=== PATIENT | male | born 1980 | race Caucasian/White ===

== ENCOUNTER 2018-11-23 15:08 | Inpatient (IN) | payer OTHER ==
--- NOTE | 2018-11-23 15:43 | EDPHY ---
H & P Time Seen by Provider: 11/23/18 15:23 HPI/ROS: CHIEF COMPLAINT: Requesting mental health evaluation HISTORY OF PRESENT ILLNESS: The patient is a 30-year-old male with no psychiatric past medical history presents emergency department with thoughts of wanting to harm himself or others. Per the patient and his cousin he has had vivid dreams over the past year. He recently returned from [facility] with his fiancee. Developed a rash on his forearms. He went to urgent care was started on prednisone orally and topically. History and became more significant after starting the prednisone. Per family's report, the patient also has delusional thinking. He feels that his previous girlfriend did "black magic" on him. Patient denies any drug use. No ingestion. No previous thoughts of self-harm or injuring others. REVIEW OF SYSTEMS: 10 systems were reveiwed and are negative with the exception of the elements mentioned in the history of present illness. Past Medical/Surgical History: Includes bilateral hip replacement, shoulder surgery Social History: The patient denies drugs or alcohol Smoking Status: Former smoker Physical Exam: Vitals noted GENERAL: Well-appearing, in no acute distress, alert. HEENT: Eyes normal to inspection, normal pharynx, no signs of dehydration. NECK: Normal, supple. RESPIRATORY: Clear to auscultation bilaterally, no rales, rhonchi or wheezing. CVS: Regular rate and rhythm, no rubs, murmurs, or gallops. ABDOMEN: Soft, nontender, nondistended, no organomegaly. BACK: Normal to inspection, no CVA tenderness. SKIN: Patient has macular and dry type lesions on his flexor surfaces of his arms bilaterally. There are no ulcers or target lesions. No pustules. No discharge. Normal color, warm, dry. No pallor. EXTREMITIES: No pedal edema, no calf tenderness, no Homans sign or cords, no joint swelling. NEURO/PSYCH: Alert and oriented, normal mood and affect, normal motor sensory exam. No obvious cranial nerve deficit. Constitutional: Initial Vital Signs Temperature (C) 36.7 C 11/23/18 15:17 Heart Rate 65 11/23/18 15:17 Respiratory Rate 18 11/23/18 15:17 Blood Pressure 129/79 H 11/23/18 15:17 O2 Sat (%) 97 11/23/18 15:17 O2 Delivery Mode Room Air Allergies/Adverse Reactions: No Known Allergies Allergy (Unverified 11/23/18 15:15) Home Medications: Medication Instructions Recorded NK [No Known Home Meds] 11/23/18 Medical Decision Making ED Course/Re-evaluation: In the emergency department I discussed possible etiologies with the patient. I answered all his questions. IV was placed. Laboratory studies were obtained. I do not feel the patient needs emergent treatment for his rash. He was instructed to continue on his medications prescribed at urgent care. CBC and chemistry are unremarkable. Tox screen negative. Psychiatric Services were consulted. The patient was placed on a mental health hold. The patient will be further evaluated. Differential Diagnosis: My differential includes but is not limited to psychosis, bipolar disorder, schizophrenia, depression, suicidal ideation, medication reaction, allergic reaction, mites - Data Points Laboratory Results: Laboratory Results 11/23/18 16:00 11/23/18 16:00 11/23/18 11/23/18 11/23/18 16:00 16:00 16:00 WBC 9.35 10^3/uL 10^3/uL (3.80-9.50) RBC 5.75 10^6/uL 10^6/uL (4.40-6.38) Hgb 17.7 g/dL H g/dL (13.7-17.5) Hct 52.2 % H % (40.0-51.0) MCV 90.8 fL fL (81.5-99.8) MCH 30.8 pg pg (27.9-34.1) MCHC 33.9 g/dL g/dL (32.4-36.7) RDW 12.6 % % (11.5-15.2) Plt Count 366 10^3/uL 10^3/uL (150-400) MPV 8.7 fL fL (8.7-11.7) Neut % (Auto) 66.7 % % (39.3-74.2) Lymph % (Auto) 23.3 % % (15.0-45.0) Park % (Auto) 8.1 % % (4.5-13.0) Eos % (Auto) 1.0 % % (0.6-7.6) Baso % (Auto) 0.5 % % (0.3-1.7) Nucleat RBC Rel Count 0.0 % % (0.0-0.2) Absolute Neuts (auto) 6.23 10^3/uL 10^3/uL (1.70-6.50) Absolute Lymphs (auto) 2.18 10^3/uL 10^3/uL (1.00-3.00) Absolute Monos (auto) 0.76 10^3/uL 10^3/uL (0.30-0.80) Absolute Eos (auto) 0.09 10^3/uL 10^3/uL (0.03-0.40) Absolute Basos (auto) 0.05 10^3/uL 10^3/uL (0.02-0.10) Absolute Nucleated RBC 0.00 10^3/uL 10^3/uL (0-0.01) Immature Gran % 0.4 % % (0.0-1.1) Immature Gran # 0.04 10^3/uL 10^3/uL (0.00-0.10) Sodium 137 mEq/L mEq/L (135-145) Potassium 4.1 mEq/L mEq/L (3.5-5.2) Chloride 95 mEq/L L mEq/L (97-110) Carbon Dioxide 26 mEq/l mEq/l (22-31) Anion Gap 16 mEq/L H mEq/L (6-14) BUN 9 mg/dL mg/dL (7-23) Creatinine 0.7 mg/dL mg/dL (0.7-1.3) Estimated GFR > 60 Glucose 107 mg/dL H mg/dL (70-100) Calcium 10.5 mg/dL H mg/dL (8.5-10.4) Salicylates < 1.0 mg/dL L mg/dL (2.0-20.0) Urine Opiates Screen NEGATIVE (NEGATIVE) Acetaminophen < 10 mcg/mL L mcg/mL (10-30) Urine Barbiturates NEGATIVE (NEGATIVE) Ur Phencyclidine Scrn NEGATIVE (NEGATIVE) Ur Amphetamine Screen NEGATIVE (NEGATIVE) U Benzodiazepines Scrn NEGATIVE (NEGATIVE) Urine Cocaine Screen NEGATIVE (NEGATIVE) U Marijuana (THC) Screen NEGATIVE (NEGATIVE) Ethyl Alcohol < 10 mg/dL mg/dL (0-10) Departure - Departure Disposition: Home, Routine, Self-Care Clinical Impression: Skin rash Condition: Good Referrals: NONE *PRIMARY CARE P,. [Primary Care Provider] - As per Instructions
[2018-11-23 16:22] LABS: PLATELET COUNT 366 10^3/uL (150-400)
--- NOTE | 2018-11-23 19:37 | ASMTTLCEVL ---
TLC Evaluation - Basic Information Evaluation Start Date and 11/23/2018 04:45 PM Time Hospital Status Answers: M1 Hold 72-hr M1 Hold Start Date 11/23/2018 05:54 PM and Time Patient statement Notes: " Started a year ago. Last few days it compounded. I felt like magic is being done to me. Last few days, I worried that I may hurt myself or others." Narrative Notes: Pt is a 38 year old male who presented to [facility] voluntarily at the recommendation of his Reiki specialist Gonzalez Nance. Pt is here with his cousin Chuck Lama. Pt reports one year ago he was in [place] visiting a woman he was dating. While he was there, he ended the relationship with this woman and left for [facility]. Pt stated once he left [place], he "felt off and depressed and that there was a possession in my head and that someone had done black magic on him and that he's been cursed." Pt stated while he was in [place] he did mushrooms one time while he was in [place]. Pt reports since [place] he has experienced visual hallucinations off and on and has paranoid delusions. Pt reports he has these vivid dreams where he feels like someone is taking over his "consciousness" and told his girlfriend," I feel like there is energy in my brain so if I'm acting differently then the've taken me, someone else is in my body and you should run." Pt stated, " Last couple nights I wake up in a panic. I'm afraid something will take over my body and I will attack my fiancee." Pt states he doesn't want to hurt himself or anyone else but is afraid that he will because of his delusions. Pt's zia Lama stated pt reported he felt that their neighbors were attacking them with bad energy. Both zia and zia Lama are concerned and stated this behavior is out of character for pt and he has never been like this before. Daina stated pt has been to several energy healers in [place] and "they stated he does have some negative energy around him." Pt appears to have good insight, was calm and cooperative throughout the evaluation. Diagnosis History Notes: Pt has no prior dx hx. Pt stated he has some situational depression in college but no dx. Prior suicide attempts Notes: Pt denied any prior suicide attemtps. Prior hospitalizations Notes: Pt denied any prior hospitalizations. Treatment Responses Notes: N/A History of violence Notes: Pt denies wanting to harm anyone intentionally. Pt reports he has been having "vivid dreams" about someone "taking over his consciousness" and he is afraid he may hurt his girlfriend. Therapist: Pt see's energy healers and a reike specialist Gonzalez Nance Psychiatrist: None Medications (name, dosage, route, freq uency) Notes: Prednisone- for the past few days Allergies/Reaction Notes: Nka Sleep Notes: Pt reports he has been sleeping approx 2 hours of sleep a night for the past 3 days. Appetite Notes: Pt reports his appetite "is like nothing." Medical/Surgical history Notes: Pt had a bilateral hip replacements in 2005 and 2006. Substance use history (frequency, intensity, his tory, duration) Notes: Pt reports using a variety of drugs experimentally in his 's. Pt reported using LSD, Coke, Xanax, shrooms and THC. Pt reports he was using marijuana since his 's but stopped using in the beginning of November. Utox was negative and bal was.0 Family composition Notes: Pt reports he has a younger sister. pt's cousing Jose lives in [facility] and they are very close. Need for family Answers: No participation in patient's care Family psychiatric/substance abuse history Notes: Pt denied any family mental health history. Pt reported his father is an alcoholic. Developmental history Notes: Pt reported his childhood was "fine for the most part." Pt reported his parents when he was10 years old and then life was "more stressfull." Pt stated his mother had to work approx 60 hours a week. Pt denied any childhood abuse hx. Pt stated he has had 3 concussions with LOC 1 time in 6th grade. Abuse concerns Answers: None Marital status/children Notes: Pt became engaged this past Tuesday, no children. Living situation Notes: Pt lives in [place]. Peer support/family strengths Notes: Pt identifies as heterosexual. Education level/history Notes: Pt attended [employer]. 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 Notes: None Legal Notes: Pt reports having a couple of DUI's in his 20's. His last DUI was in 2002. Jewish/Spiritual Notes: Pt stated he would prefer not to take any psychiatric medications. Leisure Notes: Pt enjoys traveling and has been to [place], [facility], [place] and [place]. Pt als enjoys riding bikes and hiking. Collateral Notes: Cousin-Jose Ibarra Patient's strengths Answers: Honest (Please select at least TWO strengths): Insightful Intelligent Motivated for Treatment Supportive Family Willingness [facility] Evaluation - Mental Status Exam Appearance: Answers: Appropriate Eye Contact: Answers: Good/Direct Mood: Answers: Sad Affect: Answers: Anxious Distracted Suspicious Behavior: Answers: Cooperative Speech: Answers: Relevant Logical Clear Coherent Thought Process: Answers: Organized Oriented Alert Intact Insight: Answers: Good Judgement: Answers: Good Depression Answers: Sad Mood Signs/Symptoms: Withdrawn Anxiety Signs/Symptoms Answers: Generalized Anxiety Panic Attacks Hallucinations: Answers: Auditory Visual Delusions: Answers: Being Controlled Pt reported to have Answers: No suicidal/self-injuring ideation/behavior? Pt reported to be making Answers: No suicidal/self-injuring threats? Pt reported to have Answers: No aggression/assault ideation/behavior? Pt reported to be making Answers: No aggression/assault threats? Pt exhibits inability to Answers: No care for self/grave disability? Ideation/behavior is Answers: Yes chronic? Patient has a specific Answers: No plan? Ideation involves Answers: No serious/lethal intent? Ideation has Answers: No delusional/hallucinatory content? History of Answers: No suicidal/self-injuring ideation, behavior, or threats? History of Answers: No aggressive/assaultive ideation, behavior, or threats? History of serious Answers: No physical harm to self/others while in treatment setting? [facility] Evaluation - Suicide/Homicide Risk Suicide Risk Factors: Answers: < 20 or > 40 Years of Age Psychotic Disorder Homicide/violence risk Answers: Paranoid Ideation factors: Current Suicidal Answers: No Ideation? Current Suicidal Ideation Answers: No in the Past 48 Hours? Current Suicidal Ideation Answers: No in the Past Month? Current Suicidal Answers: No Ideation, Worst Ever? Suicide Internal Answers: Frustration Tolerance Protective Factors: Suicide External Answers: Social Support Protective Factors: Ranking of patient's Answers: Moderate suicidal risk: Ranking of patient's Answers: Severe homicidal risk: [facility] Evaluation - Wrap-up BDI Total Score: Unable BSS Total Score: Unable AXIS I Diagnosis (include DSM-V and ICD-10 codes), must also be entered in Natanael Ulien, which is the source of truth. Notes: Unspecified Schizophrenia Spectrum and Other Psychotic Disorder 298.9 (F29) Evaluation End Date and 11/23/2018 07:30 PM Time (HH:MM): Date Signed: 11/23/2018 07:36 PM Electronically Signed By:Susan Melgar
--- NOTE | 2018-11-23 19:39 | ASMTTCLDSP ---
TLC Discharge Disposition Disposition: Answers: Admit Discharge Concerns/Recommendations: Notes: In consultation with [facility] ED physician, Henna Zhu MD and on-call psychiatrist, Chari Lobo MD, both concurred that pt appears to meet 27-65 criteria requiring psychiatric hospitalization as pt appears to be at risk of harm to self/others due to a mental illness condition. Pt was read the Patient Rights and Responsibilities Statement on 11/23/2018 18:30, original placed on chart, and was given photocopy of Rights. Pt signed the Patient Rights. Pt was given the [facility] prohibited belongings list while in the ED. Was patient given the Answers: Yes Inpatient Behavioral Health Prohibited Belongings List while in the ED? For inpatient Chari Lobo MD admission, the following psychiatrist agreed to accept patient for admission to Behavioral Health ([facility]): Date Signed: 11/23/2018 07:38 PM Electronically Signed By:Susan Melgar
[2018-11-23] MEDS ORDERED: NICOTINE POLACRILEX 2 MG GUM B PRN (22:07)
[2018-11-23] MEDS ORDERED: MAG HYDROX/AL HYDROX/SIMETH 30 ML UDCUP PO PRN (22:07)
[2018-11-23] MEDS ORDERED: LORazepam 0.5 MG TAB PO PRN (22:07)
[2018-11-23] MEDS ORDERED: MAGNESIUM HYDROXIDE 30 ML UDCUP PO PRN (22:07)
[2018-11-23] MEDS ORDERED: ACETAMINOPHEN 325 MG TAB PO PRN (22:07)
[2018-11-23] MEDS ORDERED: MELATONIN 3 MG TAB PO PRN (22:11)
[2018-11-23] MEDS ORDERED: SODIUM CL NASAL 45 ML BTL EACHNARE PRN (22:15)
[2018-11-23] MEDS ORDERED: OLANZapine DISINTEGR 5 MG TAB PO PRN (23:00)
[2018-11-24] MEDS ORDERED: OLANZapine DISINTEGR 10 MG TAB PO SCH
--- NOTE | 2018-11-24 08:17 | ASMTBHMTP ---
Master Treatment Plan Master Treatment Plan Answers: Depressed Mood with for: Suicidal Ideation Date: 11/24/2018 Diagnosis on Admission: Depression, unspecified Expected length of stay: 3-5 Days Reason for admission: Notes: Pt is a 38 year old male who presented to [facility] voluntarily at the recommendation of his Reiki specialist Gonzalez Nance. Pt is here with his cousin Chuck Lama. Pt reports one year ago he was in [place] visiting a woman he was dating. While he was there, he ended the relationship with this woman and left for [facility]. Pt stated once he left [place], he "felt off and depressed and that there was a possession in my head and that someone had done black magic on him and that he's been cursed." Pt stated while he was in [place] he did mushrooms one time while he was in [place]. Pt reports since [place] he has experienced visual hallucinations off and on and has paranoid delusions. Pt reports he has these vivid dreams where he feels like someone is taking over his "consciousness" and told his girlfriend," I feel like there is energy in my brain so if I'm acting differently then the've taken me, someone else is in my body and you should run." Pt stated, " Last couple nights I wake up in a panic. I'm afraid something will take over my body and I will attack my fiancee." Pt states he doesn't want to hurt himself or anyone else but is afraid that he will because of his delusions. Pt's zia Lama stated pt reported he felt that their neighbors were attacking them with bad energy. Both zia and zia Lama are concerned and stated this behavior is out of character for pt and he has never been like this before. Daina stated pt has been to several energy healers in [place] and "they stated he does have some negative energy around him." Pt appears to have good insight, was calm and cooperative throughout the evaluation. Patient's stated presenting problems: Notes: Pt. reports "lot stuff has built up with my family and fiance". Pt. reports attempting suicide by overdose. Patient's goals for treatment: Notes: Pt. reports "hopefully get stable". Patient's strengths: Notes: Pt. reports "don't know". Identify supports outside of hospital: Notes: Pt. reports her fiance is supportive. Discharge criteria: Notes: Suicidal ideation will resolve and patient will have a plan to safely manage recurrent suicidal ideation. Initial disposition plan/considerations: Notes: Pt. reports planning on living in her car with her fiance. Master Treatment Plan Required Signatures Psychiatrist signature: Answers: Psychiatrist: RN on-shift signature: Answers: RN: Patient signature: Answers: Patient: Date Signed: 11/24/2018 08:17 AM Electronically Signed By:Kimmie Zuñiga.DUANE,AUXILIARY ENGINEER,NCC
--- NOTE | 2018-11-24 09:26 | BAPA ---
[f rep st] ADMISSION PSYCHIATRIC ASSESSMENT DATE OF SERVICE: 11/24/2018 CHIEF COMPLAINT: "I started having strange thoughts that were getting worse." HISTORY OF PRESENT ILLNESS: From the ED note dated 11/23/2018, patient with no prior psychiatric history, presented to the emergency department with thoughts of wanting to harm himself or others. The patient reported having vivid dreams over the past year. He recently returned from [facility] with his fiancee. The patient recently developed a rash on his forearms. The patient was seen at an urgent care and was started on prednisone orally and topically. The patient's family reported the patient having delusional thinking. He thought that his previous girlfriend did "black magic" on him. From the [facility] evaluation dated , patient was placed on a 72-hour M1 hold with start date and time of at 5:54 p.m. The patient reported to the [facility] seed district sales manager, "Started a year ago. Past few days it compounded. I felt like magic is being done to me. Last few days I worried that I may hurt myself or others." The patient presented to the emergency room at recommendation of [facility] specialist. The patient reported that 1 year ago he was in [place] visiting a woman he was dating. While there, he ended the relationship with this woman and left for [facility]. The patient reports that after he left [place] he felt "off and depressed and that there was a possession in my head and that someone had done black magic on him, and he has been cursed." The patient also reported that while in [place], he did mushrooms. The patient reported since leaving [place], he has experienced visual hallucinations off and on and has had paranoid delusions. The patient reports vivid dreams and reports that he feels like someone is taking over his "consciousness." The patient reportedly told his girlfriend, "I feel like there is energy in my brain, so if I am acting differently then they've taking me. Someone else is in my body and you should run." The patient reported the last couple of nights he has woken in a panic. The patient reports to this DINKEY BRAKEMAN that he recently started prednisone 40 mg p.o. daily for skin rash. The patient reports that he started prednisone on Tuesday and stopped taking this medication after 4 days because his rash was not resolving. The patient reports that the first day he took prednisone he did not sleep well the night after taking prednisone. The patient also reports that around the same time he started prednisone, he started having paranoid delusions, and felt a "vibration" in his body. The patient describes no psychiatric symptoms today when meeting with this DINKEY BRAKEMAN for this evaluation. The patient describes no paranoid delusions. The patient reports he does not feel paranoid. The patient reports last use of marijuana was November 05, and reports no other substance use. The patient reports, "I feel better today." PAST PSYCHIATRIC HISTORY: The patient has no past psychiatric history. No past history of psychiatric diagnoses. No past history of psychiatric hospitalizations, and no history of suicide attempts. The patient does report that he has only been sleeping about 2 hours a night for the past 3 days and reports that he feels as though this is due to recently starting prednisone. ALLERGIES: No known allergies. CURRENT MEDICATIONS: 1. Tylenol 650 mg p.o. q.4 hours p.r.n. 2. Ativan 0.5 to 1 mg p.o. q.6 hours p.r.n. 3. Maalox syrup 30 mL p.o. q.6 hours p.r.n. 4. Milk of magnesia 30 mL p.o. daily p.r.n. 5. Melatonin 3-6 mg p.o. at bedtime p.r.n. 6. Zyprexa Zydis 5-10 mg p.o. q.6 hours p.r.n. 7. Harrells nasal spray 1 spray each naris p.r.n. PAST MEDICAL HISTORY: The patient reports a bilateral hip replacement in 2005 and 2006. The patient reports recently being prescribed prednisone for skin rash. The patient reports no other past medical or surgical history. SOCIAL HISTORY: The patient currently resides in [place] and reports his girlfriend lives in [place]. The patient reports he was engaged this past Tuesday and currently has no children. The patient reports a normal childhood , meeting all developmental milestones. The patient reports no history of learning delays or difficulties. 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 The patient reports no history of duty and reports legal history as having a couple DUIs in his 20s. Last DUI was in 2002. The patient reports no specific taoist or spiritual practice that may impact his treatment and reports that he would prefer not to take any psychiatric medications. The patient reports he enjoys traveling and has been to [place], [facility], [place], and [place]. The patient reports he also enjoys riding bikes and hiking. SUBSTANCE USE HISTORY: Patient reports experimenting with a variety of drugs in his 20s. Reports experimenting with LSD, cocaine, Xanax, mushrooms, and THC. The patient reports he has been using marijuana since his 20s, but recently stopped last use November 05, 2018. The patient's urine toxicology screen was negative for all substances screened. Negative for ethyl alcohol. FAMILY PSYCHIATRIC HISTORY: The patient reports no family psychiatric history. He reports his father did abuse alcohol. The patient reports no family history of suicide or suicide attempts. ADMISSION LABS: 1. CBC within normal limits except hemoglobin was elevated at 17.7 and hematocrit was elevated at 52.2. 2. BMP within normal limits except chloride was low at 95, anion gap was elevated at 16, glucose elevated at 107. Hemoglobin A1c pending. 3. Calcium is elevated at 10.5. 4. Liver function within normal limits except total protein was elevated at 8.8 , albumin was elevated at 5.4. 5. Lipid panel within normal limits except LDL cholesterol calculated was elevated at 103. 6. Toxicology screen was negative for all substances screened, and negative for ethyl alcohol. MENTAL STATUS EXAM: The patient is a well-nourished male, looking stated chronological age. Attire is appropriate. Dress is casual and hospital garb pants. Grooming status is appropriate. Ambulation is independent. Gait is normal and coordinated. Posture is normal and relaxed. Eye contact is appropriate and adequate. Motor activity is appropriate with purposeful, organized, coordinated movements with no involuntary movements noted. Attitude is cooperative and friendly. The patient appears attentive and relates well to this interviewer. Language production is spontaneous. Rate, rhythm, and volume are normal. Articulation is clear. The patient reports mood as okay with congruent affect. The patient's thought process is linear and logical with no loose associations, tangential thought, thought blocking, concrete thinking, or any other signs of formal thought disorder. The patient does not report suicidal or homicidal thoughts, ideas, or plans. The patient denies auditory or visual hallucinations. The patient denies delusions. The patient does not appear to be attending to internal stimuli. The patient is oriented to person, place, time, and situation. The patient's attention and concentration are fair. The patient's insight and judgment are fair. There is no evidence of gross cognitive dysfunction at any point during the interview, and no evidence of apparent dysfunction in recent or remote memory noted. DIAGNOSES: Based on the patient's history and current presentation, the patient 's diagnoses is: 1. Unspecified psychosis. 2. Cannabis use disorder, unknown severity. 3. R/O Substance or medication-induced psychotic disorder FORMULATION: The patient is a 38-year-old male, single, recently engaged, is currently employed as a [employer]. Resides in [place], [place]. Often visits his girlfriend and current fiancee who lives in [place], [place]. The patient presents to this hospital involuntarily due to being a harm to himself and others, and patient also appeared to be gravely disabled at time of presenting to the emergency room. The patient is currently on an M1 hold. The patient requires continued inpatient care because of recent paranoid thoughts that led patient to believe that he may be a danger to himself or others and patient, therefore, presented to the emergency room for further evaluation. The patient presents with problems of delusions. The patient reports that these delusions started around the same time that he started a course of prednisone 40 mg p.o. daily for a skin rash. The patient reports no paranoid delusions during this evaluation. The patient also reports a history of delusions approximately 1 year ago. The patient reports at that time he did use mushrooms. The patient reports these delusions were ongoing. The patient reports no other previous psychiatric history. No history of psychiatric diagnosis. No history of psychotropic medications. The patient is a suicide safety risk due to recent reports of feeling as though he may be a harm to himself or others. Prior to presenting to this hospital, patient was also reporting paranoid delusions and was having difficulty testing reality. Protective factors while hospitalized include ongoing safety checks, active involvement in treatment and support from our treatment team. The patient could benefit from inpatient hospitalization for safety, ongoing monitoring, crisis stabilization, and medication evaluation. PLAN: 1. Medications: No psychotropic medications indicated at this time. The patient reports his preference is to not begin a trial of psychiatric medication. Will continue to monitor and make recommendations for psychotropic medications as indicated. No other medication changes at this time as more time is needed to determine ongoing tolerability and efficacy. Plan is to continue to observe patient for response and side effects from medications, and ongoing monitoring and evaluation. 2. Review with patient informed consent and recommendations for psychotropic medication treatment listed below 3. Labs: no additional labs at this time 4. Therapy: continue milieu and group therapy 5. Further investigation including gathering information from patients relatives and review of past case records to inform treatment plan. 6. Safety/Wellness plan and follow-up outpatient appointments to be established prior to discharge. Next steps are for patient to meet with resident care aide to plan a safe discharge plan and establish outpatient services for ongoing treatment. 7. Confer with inpatient treatment team regarding treatment plan. 8. Address psychosocial stressors by meeting with neonatal intensive care nurse to establish discharge plan including referrals for outpatient services. 9. Legal status: M1 10. Consider discharge next week if patient is in stable condition, safe, and has a safe discharge plan. 11. Substance abuse interventions: THC ESTIMATED LENGTH OF STAY: 3-5 days PSYCHOTROPIC MEDICATION TREATMENT INFORMED CONSENT and RECOMMENDATIONS: Review nature of condition, diagnosis, and prognosis. Review nature and purpose of psychotropic medication treatment. Review type of psychotropic medications being ordered. Review risk and benefits of psychotropic medication treatment. Review probable length of time will need to take medications. Review risk and benefits of not undergoing psychotropic medication treatment. Review alternative treatments to psychotropic medications. Review psychotropic medications contraindications, drug-drug interactions, side effects, and importance of reporting any side effects to a psychiatric provider or nurse during inpatient hospitalization, and upon discharge to patients psychiatric outpatient provider, primary care provider, or other health career technical supervisor. Review importance of asking a nurse, psychiatric provider, or primary care provider any questions or problems concerning the psychotropic medications. Verify patient understands the information that has been provided, and understands, accepts, and agrees to psychotropic medications. Review patients safety plan and importance of patient to communicate to staff while hospitalized if patient is ever a danger to self/others, or unable to care for self, and upon discharge, the importance for patient to contact [facility] or [facility], or go to the nearest emergency room, if patient is ever a danger to self/others, or unable to care for self. Recommend that upon discharge patient establish medication management treatment with a psychiatric provider, establishes routine therapy appointments, and follow-up with primary care provider. Verify patient understands and agrees to these recommendations. /[id number]/MODL MTDD
--- NOTE | 2018-11-24 12:59 | ASMTCMCOM ---
CM Note CM Note Notes: CC met with pt to complete MTP. Pt. reports having no providers, but wanting his follow up appointments in [place]. Pt. reports not being open to trying medications, but is open to working with a therapist. Pt. denies any current legal issues. Pt. reports drinking alcohol "not really anymore" adding he stopped drinking about a year ago, after his "black magic attacks" stated. Pt. reports using THC a "few times a week" adding he was traveling and did not use THC for the last three weeks, adding he uses edibles. Pt. reports using other substances when he was younger but none currently. Pt. reports this being his first mental health hospitalization. Pt. presents as alert, calm, guarded, soft spoken at times, good eye contact, groomed, and cooperative. Staff report pt. sleeping 6.5 hours and not currently taking any medications. CC to refer pt. to [facility]. CC to secure follow up, through pt's insurance, with a therapist. Date Signed: 11/24/2018 12:58 PM Electronically Signed By:Kimmie Zuñiga.DUANE,ASSEMBLER PLASTIC BOAT,NCC
--- NOTE | 2018-11-24 14:50 | PDCONSULT ---
Geriatric Case Manager Note: INTERNAL MEDICINE CONSULT NOTE REASON FOR CONSULT: medical clearance for inpatient behavioral health HPI: 38yo M with no significant past medical history who is currently on an M1 hold for paranoid delusions and possible suicidal ideation. He has no previous psychiatric history. He recently returned from [place] with his fiancee on . He noticed a red rash on the flexor surfaces of his arms and went to urgent care on 11/18 and was prescribed 40mg prednisone and a topical steroid. He took these for 4 days and did not see any improvement. He has not been sleeping very much since he started the steroids and became delusional prompting evaluation. He denies any recent fevers, chills, neck pain/stiffness, nausea, vomiting, diarrhea, urinary symptoms. He has no mucosal/oral involvement of the rash. He does not think he's had this rash before. No new creams/moisturizers or detergents. PAST MEDICAL HISTORY: none PAST SURGICAL HISTORY: bilateral total hip arthroplasty reportedly 2/2 avascular necrosis MEDICATIONS: none ALLERGIES: none SOCIAL HISTORY: Lives independently in [place]. Has either girlfriend or fiancee who lives in [place]. Doesn't smoke cigarettes. Occasional marijuana. Previous heavy etoh but minimal currently. 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 FAMILY HISTORY: non-contributiry REVIEW OF SYSTEMS: A 10 point review of systems was performed and is negative except as per HPI. OBJECTIVE: VITAL SIGNS: listed below, all within normal limits. PHYSICAL EXAM: GENERAL: He is awake, alert, and oriented in no acute distress. HEENT: Head is atraumatic, normocephalic. Pupils equal round and reactive to light, extraocular movements intact. Oropharynx is clear, moist mucous membranes. NECK : Supple, no JVD or adenopathy. HEART: Regular rate and rhythm without murmur. LUNGS: Clear to auscultation bilaterally. ABDOMEN: Soft, nontender and nondistended. EXTREMITIES: No pedal edema. Warm, well perfused. NEUROLOGIC: No focal deficits. SKIN: Erythematous, raised rash over bilateral flexor surfaces. LABORATORY DATA: CBC shows WBC 9.3, Hgb 17.7, plts 366. BMP shows Na 137, K 4.1 , Cl 95, CO2 26, BUN 9, Cr 0.7, glucose 107, calcium 10.5. LFTs within normal limits. Utox negative. Ethyl alcohol negative. Salicylates and acetaminophen levels negative. IMAGING STUDIES: None for review. ASSESSMENT/PLAN: 38yo M with no past psychiatric history admitted for new onset delusions. 1. Paranoid delusions: Query if has steroid-induced psychosis. Psychiatry team is evaluating. 2. Erythematous plaques involving bilateral flexor surfaces of upper extremities : Seems most consistent with eczematous dermatitis. Interestingly, he reports minimal response to systemic and topical steroids but was only on for short duration. These seems less consistent with infectious process (such as tinea infection, cellulitis) or vasculitis. I would recommend a more potent topical steroid, such as a thin film of betamethasone 0.05% topically BID to affected areas. This will have negligible systemic absorption. 3. Polycythemia, hypercalcemia: Suspect mild dehydration. No indication to further work up. Thank you for this consult. I do not see any contra-indication for this patient' s continued inpatient stay in behavioral health. Please call or page the internal medicine team with any further questions or concerns.
[2018-11-24] MEDS: BETAMETHASONE AUGMENTED 0.05% TP SCH (22:30)
[2018-11-25] MEDS: BETAMETHASONE AUGMENTED 0.05% TP SCH ×2 (08:53→20:43)
--- NOTE | 2018-11-25 16:30 | ASMTBHFAM ---
Notes Note: Notes: CC met with pt's fiance, Daina ([phone]), cousin, Terrance ([phone]), and mom, Pricilla ([phone]). Pt's family stated the pt is "pretty far" from baseline. MOC stated pt's had his hips replaced when he was 26-27 years old. Toña stated pt. left for [place] on 11/04/18 for a "medical mission" where the pt. help by giving UAs and taking vital signs. Toña stated while in [place] pt. had a dream about his ex (who did the black magic attacks) and then decided to met with a shaman in [place]; who stated there are people in [place] helping this ex and can take people's conscience and even kill people. Toña stated pt. [place] to the [place] on 11[place]18 and had developed a rash and began taking prednisone. Toña stated the pt. proposed on 11/18/18. MOC stated pt. had a crown removed on 11/03/18 and he lost his temporary. MOC expressed concerns about pt. possibly having an infection. MOC stated pt. had a typhoid vaccination prior to 11/04/18. Toña stated after returning home pt. "thought had an alien virus" adding the pt. was treating himself with "anti-virals" on Tuesday. Family stated pt's ideas about aliens "manifested last week". MOC stated pt. attended a 28 day rehab in [place] in either 2004 or 2005. Toña stated pt. believes he brought the black magic curse back by drinking recently. Fiance stated pt. maybe hesitant to take sleeping medications stating the pt. is worried that while sedated "entities can take your conscience". Filauren reports prior to pt's trip, he was using THC everyday, adding he usually would eat half a edible. Cousin reports pt. was abusing Xanxa around 2005. Danteance stated pt. was "happy and healthy" prior to leaving for [place]. Fiance stated pt. was responding to internal stimuli while visiting with her last night, reporting the pt. was talking to an dean out the window and waiting for answers to his questions. Date Signed: 11/25/2018 04:30 PM Electronically Signed By:Kimmie Zuñiga.DUANE,PICK PULLING MACHINE OPERATOR,NCC
--- NOTE | 2018-11-25 16:53 | ASMTCMCOM ---
CM Note CM Note Notes: Pt. reports feeling "alright". Pt. stated he slept "not too well" adding due to being on the unit. Pt. reports his "appitite not what it usually is". Pt. reports not currently taking any medications, but reports he is considering taking melatonin at bedtime. Pt. reports attending a "few" groups. Pt. denied SI, HI, and AVH. Pt. reports some paranoia, adding it is "generalized". Pt. reports visiting with his family and it going "fine". Pt. stated he would like to discharge when his hold expires tomorrow. Pt. reports having the vibrating feeling "from time to time". CC asked about aliens, pt. stated "no trouble with aliens". Pt. presents as alert, calm, good eye contact, guarded, groomed, and mostly cooperative. Staff report pt. sleeping 5.5 hours and not taking any available PRNs. CC put several therapist referrals into pt's chart that accept [employer] insurance. CC to schedule appointment with therapist on Tuesday. Date Signed: 11/25/2018 04:53 PM Electronically Signed By:Kimmie Zuñiga.DUANE,HIGHWAY PATROL PILOT,NCC
--- NOTE | 2018-11-25 17:01 | SOAPPROG ---
SOAP Progress Note Assessment/Plan: Assessment: 38yo M with no significant past medical history who is currently on an M1 hold for paranoid delusions and possible suicidal ideation. He has no previous psychiatric history. He recently returned from [place] with his fiancee on . He noticed a red rash on the flexor surfaces of his arms and went to urgent care on 11/18 and was prescribed 40mg prednisone and a topical steroid. He took these for 4 days and did not see any improvement. He has not been sleeping very much since he started the steroids and became delusional prompting evaluation. WEEKEND PLAN: 11/25/18 17:01 1. CC gathered extensive collateral information from family who came for visit today. They state that after breakup with girlfriend in 2018, patient thought she had put "black magic attack" on him. Patient has no prior h/o psychotic sxs. He had no other delusions until after he returned from mission trip to [place] last week. He told family members that he visited [facility] in [facility] after his trip to [place] who told him that "there are people in [place] who will try to steal your consciousness." Patient developed a rash and went to Urgent Care on 11/18. They prescribed prednisone 40mg daily, and patient took x 4 days. He reports difficulty sleeping and "weird" sensations, including feeling like his whole body was "vibrating." Patient also started developing paranoid delusions, such as believing that he had to "give my soul to aliens" and believing that other people were possessed by aliens. 2. Family also reports patient consumes THC edible every day. They say he had substance abuse problems in the past with ETOH and xanax. He went to rehab in . 3. Patient does express concern about recent delusions and reports they are disturbing. However, he is not convinced they are delusions. He believes they are real, and doesn't want to take antipsychotic medications. He did, however, ask for something to help him with sleep. MD strongly encouraged patient to consider taking Olanzapine for agitation as well as psychosis. 4. [facility] expires tomorrow. Will likely need STC since he's already indicated he will not stay in hospital voluntarily. Subjective: Patient presents as distressed to be in hospital. He is very disturbed by thoughts of "giving my soul to aliens" and believing that people around him are possessed by aliens. However, patient believes these thoughts are real and doesn 't think they are delusions. He doesn't want to take medications, even when it' s explained to him that medications could help these thoughts go away. Patient believes in "natural" remedies including Reiki and energy healing. Family says he consulted a "shaman" in [facility] on his recent trip to [facility] who told him that people in [place] will try to "steal his consciousness." Per family, this has made patient even more paranoid. Objective: Vital Signs Temp Pulse Resp BP Pulse Ox 36.6 C 81 14 124/85 H 97 11/25/18 06:00 11/25/18 06:00 11/25/18 06:00 11/25/18 06:00 11/25/18 06:00 MSE: Affect: Agitated Mood: Anxious TP: Disorganized, irrational TC: Denies SI/HI, has paranoid delusions about "aliens" and "black magic" spells Insight/ Judgment: Impaired - Time Spent With Patient Time Spent With Patient: 15" - Pending Discharge Pending Discharge Within 24 Hours: No Pending Discharge Within 48 Hours: No ICD10 Worksheet Patient Problems: Problems Problem Status Onset Cannabis use disorder, mild, abuse Acute Skin rash Acute Substance or medication-induced psychotic disorder Acute Unspecified psychosis Acute
[2018-11-25] MEDS: OLANZapine 10 MG TAB PO SCH (20:43)
[2018-11-26] MEDS: BETAMETHASONE AUGMENTED 0.05% TP SCH ×2 (08:43→21:25)
--- NOTE | 2018-11-26 15:38 | ASMTCMCOM ---
CM Note CM Note Notes: Pt. reports feeling "fine". Pt. reports "feeling the same as it has been". Pt. reports his rash is getting better. Pt. reports he "slept really well" adding it was a sedated sleep. Pt. reports his appetite increasing. Pt. reports having no issues with his current medications. Pt. reports attending groups. Pt. reports prior to admission he wasn't sleeping much. Pt. reports no issues while on the unit. Pt. reports feeling mckenna safe on unit. Pt. denied SI, HI, and AVH. Pt. reports seeing "different colors of blue lights on the wall" and being unsure about if it was a VH. Pt. reports his paranoia is "not any more than usual". Pt. agreed he needs to see a therapist. Pt. presents as alert, calm, good eye contact, groomed, polite and cooperative. Staff report pt. sleeping 10 hours and being medication compliant. CC to schedule a follow up appointment with providers approved through pt's insurance. Date Signed: 11/26/2018 03:37 PM Electronically Signed By:Kimmie Zuñiga.DUANE,PLYWOOD FACTORY WORKER,NCC
--- NOTE | 2018-11-26 16:28 | SOAPPROG ---
SOAP Progress Note Assessment/Plan: Assessment: 38yo M with no significant past medical history who is currently on an M1 hold for paranoid delusions and possible suicidal ideation. He has no previous psychiatric history. He recently returned from [place] with his fiancee on . He noticed a red rash on the flexor surfaces of his arms and went to urgent care on 11/18 and was prescribed 40mg prednisone and a topical steroid. He took these for 4 days and did not see any improvement. He has not been sleeping very much since he started the steroids and became delusional prompting evaluation. WEEKEND PLAN: 11/25/18 17:01 1. CC gathered extensive collateral information from family who came for visit today. They state that after breakup with girlfriend in 2018, patient thought she had put "black magic attack" on him. Patient has no prior h/o psychotic sxs. He had no other delusions until after he returned from mission trip to [place] last week. He told family members that he visited [facility] in [facility] after his trip to [place] who told him that "there are people in [place] who will try to steal your consciousness." Patient developed a rash and went to Urgent Care on 11/18. They prescribed prednisone 40mg daily, and patient took x 4 days. He reports difficulty sleeping and "weird" sensations, including feeling like his whole body was "vibrating." Patient also started developing paranoid delusions, such as believing that he had to "give my soul to aliens" and believing that other people were possessed by aliens. 2. Family also reports patient consumes THC edible every day. They say he had substance abuse problems in the past with ETOH and xanax. He went to rehab in . 3. Patient does express concern about recent delusions and reports they are disturbing. However, he is not convinced they are delusions. He believes they are real, and doesn't want to take antipsychotic medications. He did, however, ask for something to help him with sleep. MD strongly encouraged patient to consider taking Olanzapine for agitation as well as psychosis. 4. [facility] expires tomorrow. Will likely need STC since he's already indicated he will not stay in hospital voluntarily. 11/26/18 16:25 1. Patient feels "really good" after sleeping 10 hrs last night. He says the Olanzapine "really helped." 2. Patient says thoughts are "same" today, but is very guarded about revealing details. Patient appears reluctant to disclose paranoid thoughts and delusions to MD. 3. MD believes patient is still psychotic, delusional and paranoid. Prior to admission, he was worried "something" would "steal" his "consciousness" and might take over his body and attack his fiancee. MD believes patient is still DTS/DTO and gravely disabled and meets criteria for STC. 4. Patient willing to continue on Olanzapine and is willing to consider increasing dose "if necessary." 5. STC Subjective: Patient presents calm, guarded and reluctant to talk about his psychotic sxs today. He says Olanzapine "really helped" him get a good night's sleep for first time in several weeks. He wants to know if he should take medication in AM as well as at night. MD mentions that a new provider will take over patient' s care starting tomorrow, and that provider will help assess whether patient needs to be on higher dose of medication. Objective: Vital Signs Temp Pulse Resp BP Pulse Ox 36.6 C 54 L 16 115/71 97 11/26/18 06:00 11/26/18 06:00 11/26/18 06:00 11/26/18 06:00 11/26/18 06:00 MSE: Affect: Flat Mood: "Better" TP: Goal-directed TC: Denies any SI/HI, still paranoid, but guarded about revealing delusions Insight/Judgment: Poor - Time Spent With Patient Time Spent With Patient: 20" - Pending Discharge Pending Discharge Within 24 Hours: No Pending Discharge Within 48 Hours: No ICD10 Worksheet Patient Problems: Problems Problem Status Onset Cannabis use disorder, mild, abuse Acute Skin rash Acute Substance or medication-induced psychotic disorder Acute Unspecified psychosis Acute
[2018-11-26] MEDS: OLANZapine 10 MG TAB PO SCH (21:25)
[2018-11-27] MEDS: BETAMETHASONE AUGMENTED 0.05% TP SCH ×2 (09:09→20:01)
--- NOTE | 2018-11-27 09:20 | SOAPPROG ---
SOAP Progress Note Assessment/Plan: Assessment: Unspecified Psychosis (see subjective/objective note). Current delusions, patient reports he does not feel safe toward himself or others. Patient is not safe to discharge at this time as patient continues to exhibit signs of psychosis, and express psychosis symptoms. Patient requires continued inpatient care because of current psychosis, and requires inpatient level of care to stabilize in order to no longer be gravely disabled due to mental illness. Patients support system has inability to manage functional impairment at lower level of care. Patient could benefit from continued inpatient hospitalization for crisis stabilization, safety, and medication evaluation. Plan: 1. Lower Zyprexa to 5 mg po QHS. 2. Review with patient informed consent and recommendations for psychotropic medication treatment listed below 3. Labs: no additional labs at this time 4. Therapy: continue milieu and group therapy 5. Further investigation including gathering information from patients relatives and review of past case records to inform treatment plan. 6. Safety/Wellness plan and follow-up outpatient appointments to be established prior to discharge. Next steps are for patient to meet with life care planner to plan a safe discharge plan and establish outpatient services for ongoing treatment. 7. Confer with inpatient treatment team regarding treatment plan. 8. Psychosocial stressors addressed through caser shoe parts. 9. Legal status: [facility] 10. Consider discharge next week if patient is in stable condition, safe, and has a safe discharge plan. PSYCHOTROPIC MEDICATION TREATMENT INFORMED CONSENT and RECOMMENDATIONS: Review nature of condition, diagnosis, and prognosis. Review nature and purpose of psychotropic medication treatment. Review type of psychotropic medications being ordered. Review risk and benefits of psychotropic medication treatment. Review probable length of time patient will need to take medications. Review risk and benefits of not undergoing psychotropic medication treatment. Review alternative treatments to psychotropic medications. Review psychotropic medications contraindications, drug-drug interactions, side effects, and importance of reporting any side effects to a psychiatric provider or nurse during inpatient hospitalization, and upon discharge to patients psychiatric outpatient provider, primary care provider, or other health career development director. Review importance of asking a nurse, psychiatric provider, or primary care provider any questions or problems concerning the psychotropic medications. Verify patient understands the information that has been provided, and understands, accepts, and agrees to psychotropic medications. Review patients safety plan and importance of patient to report to staff while hospitalized if patient is ever a danger to self/others, or unable to care for self, and upon discharge, the importance for patient to contact [facility] or [facility], or go to the nearest emergency room, if patient is ever a danger to self/others, or unable to care for self. Recommend that upon discharge patient establish medication management treatment with a psychiatric provider, establishes routine therapy appointments, and follow-up with primary care provider. Verify patient understands and agrees to these recommendations. 11/27/18 09:24 Subjective: Following up with patient for evaluation of psychosis and safety. Patient reports, "Still feeling off." Patient reports he continues to have thoughts that he thinks are unsafe, and describes continuing thoughts of being able to potentially leave his own body in some way, and he thinks this is a risk to both him and others. Patient reports feeling over-sedated from Zyprexa, and he requests dose to be lowered. Patient agrees to Zyprexa 5 mg po QHS. Objective: Vital Signs Temp Pulse Resp BP Pulse Ox 36.6 C 50 L 14 112/62 96 11/27/18 06:00 11/27/18 06:00 11/27/18 06:00 11/27/18 06:00 11/27/18 06:00 MD REPORT FROM WEEKEND: Pt placed on STC. Paranoid delusions, worried "something" would "steal" his consciousness, take over his body and hurt his fiance. Agreed to Olanzapine 10 mg po QHS. MSE: The patient is a well-nourished male looking stated chronological age. Attire is appropriate and dress is casual. Grooming status is appropriate. Ambulation is independent. Gait is normal and coordinated. Posture is normal and relaxed. Eye contact is appropriate. Motor activity is appropriate with purposeful, organized, coordinated movements; with no involuntary movements. Attitude is cooperative. Patient appears attentive and relates well to this interviewer. Language production is spontaneous. Rate is hesitant, latency of response is prolonged. Articulation is clear. Patient reports mood as "weird" with flat affect. Patients thought process is non-linear and illogical. Patient denies suicidal thoughts, denies homicidal ideation. Patient denies auditory, visual hallucinations. Patient reports delusions. Patient does not appear to be attending to internal stimuli. Patients attention and concentration are fair. Patient is oriented to person, place, and time. Patients insight and judgment are poor. - Time Spent With Patient Time Spent With Patient: 15 minutes, met with patient individually. - Pending Discharge Pending Discharge Within 24 Hours: No Pending Discharge Within 48 Hours: No ICD10 Worksheet Patient Problems: Problems Problem Status Onset Cannabis use disorder, mild, abuse Acute Skin rash Acute Substance or medication-induced psychotic disorder Acute Unspecified psychosis Acute
--- NOTE | 2018-11-27 14:19 | ASMTCMCOM ---
CM Note CM Note Notes: Pt. was visiting with his cousin when CC approached. Pt. reports feeling "okay". Pt. stated he "slept 12-13 hours" adding he "couldn't physically get out of bed". Pt. stated he feels his zyprexa needs to be lowered. Pt. reports getting enough to eat, adding his appetite is coming back more each day. Pt. reports not attending groups this morning due to being in bed, but plans to attend the afternoon groups. Pt. denied SI, HI, and AVH. Pt. stated "of course" when asked about paranoia. Pt. shared he is "convinced people are out to get me", adding he feels this way about everyone at the hospital. Pt. reports still feeling as though he is getting black magic attacks, adding he mainly feels this at night, while sleeping. Pt. reports feeling he has improved while in the hospital, mainly around sleeping and eat. Pt. reports feeling he is at a plateau now. Pt. reports he is open to seeing a prescribed Pt. reports the lights in his room are not working. Pt. presents as alert, calm, slightly rigid, groomed, somewhat guarded, more open today, nervous to share, and cooperative. Staff report pt. sleeping 8 hours and being medication compliant. CC to schedule pt.'s follow up appointments with therapist and prescriber. Date Signed: 11/27/2018 02:19 PM Electronically Signed By:Kimmie Zuñiga.DUANE,ALMOND PASTE MIXER,NCC
[2018-11-27] MEDS: OLANZapine 10 MG TAB PO SCH (20:01)
--- NOTE | 2018-11-28 08:13 | SOAPPROG ---
SOAP Progress Note Assessment/Plan: Assessment: Unspecified Psychosis. Slight improvement noted, notably improved sleep (see subjective/objective note). Patient is not safe to discharge at this time as patient continues to exhibit signs of psychosis (withdrawn from social interactions), and express psychosis symptoms (delusions). Patient requires continued inpatient care because of current psychosis, and requires inpatient level of care to stabilize in order to no longer be gravely disabled due to mental illness. Patients support system has inability to manage functional impairment at lower level of care. Patient could benefit from continued inpatient hospitalization for crisis stabilization, safety, and medication evaluation. Plan: 1. Continue current medications. 2. Review with patient informed consent and recommendations for psychotropic medication treatment listed below 3. Labs: no additional labs at this time 4. Therapy: continue milieu and group therapy 5. Further investigation including gathering information from patients relatives and review of past case records to inform treatment plan. 6. Safety/Wellness plan and follow-up outpatient appointments to be established prior to discharge. Next steps are for patient to meet with rn urgent care to plan a safe discharge plan and establish outpatient services for ongoing treatment. 7. Confer with inpatient treatment team regarding treatment plan. 8. Psychosocial stressors addressed through keycase assembler. 9. Legal status: [facility] 10. Consider discharge this week if patient is in stable condition, safe, and has a safe discharge plan. PSYCHOTROPIC MEDICATION TREATMENT INFORMED CONSENT and RECOMMENDATIONS: Review nature of condition, diagnosis, and prognosis. Review nature and purpose of psychotropic medication treatment. Review type of psychotropic medications being ordered. Review risk and benefits of psychotropic medication treatment. Review probable length of time patient will need to take medications. Review risk and benefits of not undergoing psychotropic medication treatment. Review alternative treatments to psychotropic medications. Review psychotropic medications contraindications, drug-drug interactions, side effects, and importance of reporting any side effects to a psychiatric provider or nurse during inpatient hospitalization, and upon discharge to patients psychiatric outpatient provider, primary care provider, or other health customer care coordinator. Review importance of asking a nurse, psychiatric provider, or primary care provider any questions or problems concerning the psychotropic medications. Verify patient understands the information that has been provided, and understands, accepts, and agrees to psychotropic medications. Review patients safety plan and importance of patient to report to staff while hospitalized if patient is ever a danger to self/others, or unable to care for self, and upon discharge, the importance for patient to contact [facility] or [facility], or go to the nearest emergency room, if patient is ever a danger to self/others, or unable to care for self. Recommend that upon discharge patient establish medication management treatment with a psychiatric provider, establishes routine therapy appointments, and follow-up with primary care provider. Verify patient understands and agrees to these recommendations. 11/28/18 08:11 Subjective: Following up with patient for evaluation of psychosis and safety. Patient reports, "Feel better this morning. Yesterday I was in bed until noon." With regard to delusions patient reports, "I still believe what I believe." With regard to patient feeling safe to discharge patient reports, "I don't know. Have think about that." Patient reports no side effects from current medications, and agrees to continue current medications. Objective: Vital Signs Temp Pulse Resp BP Pulse Ox 36.9 C 50 L 14 118/62 96 11/28/18 06:00 11/28/18 06:00 11/28/18 06:00 11/28/18 06:00 11/28/18 06:00 MD REPORT FROM WEEKEND: Pt placed on STC. Paranoid delusions, worried something would steal his consciousness, take over his body and hurt his fianc e. Agreed to Olanzapine 10 mg po QHS. MSE: The patient is a well-nourished male looking older chronological age. Attire is appropriate and dress is casual. Grooming status is appropriate. Ambulation is independent. Gait is normal and coordinated. Posture is normal and relaxed. Eye contact is appropriate. Motor activity is appropriate with purposeful, organized, coordinated movements; with no involuntary movements. Attitude is cooperative. Patient appears attentive and relates well to this interviewer. Language production is spontaneous. R/R/V normal. Articulation is clear. Patient reports mood as okay with congruent affect. Patients thought process is linear and fairly logical. Patient denies suicidal thoughts , denies homicidal ideation. Patient denies auditory, visual hallucinations. Patient reports delusions. Patient does not appear to be attending to internal stimuli. Patients attention and concentration are fair. Patient is oriented to person, place, and time. Patients insight and judgment are poor. - Time Spent With Patient Time Spent With Patient: 15 minutes, met with patient individually. - Pending Discharge Pending Discharge Within 24 Hours: No Pending Discharge Within 48 Hours: No ICD10 Worksheet Patient Problems: Problems Problem Status Onset Cannabis use disorder, mild, abuse Acute Skin rash Acute Substance or medication-induced psychotic disorder Acute Unspecified psychosis Acute
[2018-11-28] MEDS: BETAMETHASONE AUGMENTED 0.05% TP SCH ×2 (08:30→20:25)
--- NOTE | 2018-11-28 14:53 | ASMTCMCOM ---
CM Note CM Note Notes: Pt. reports feeling "okay". Pt. reports his concerns from yesterday have continued into today. Pt. reports his medication was lowered and pt. reports sleeping much better. Pt. was interested in Dr. Sanz, CC informed pt. Dr. Sanz does not accept insurance. Pt. request to have Dr. Sanz's information, but CC will continue to look for prescribed in pt's insurance. Pt. agreed to see Kasey Kim as his outpatient counselor. Kasey will email CC intake paperwork, CC to give paperwork to pt. Pt. requested to shave and clean up his [place]a. Pt. presents as alert, calm, slightly guarded, good eye contact, groomed, and cooperative. Staff report pt. sleeping 9.5 hours and being medication compliant. Pt. has an appointment on 12/08/18 @ 4:00pm. Pt. has a PCP appointment on 12/07 at 10:45am. Date Signed: 11/28/2018 02:52 PM Electronically Signed By:Kimmie Zuñiga.DUANE,CHEMISTRY TUTOR,NCC
[2018-11-28] MEDS: OLANZapine 10 MG TAB PO SCH (20:23)
--- NOTE | 2018-11-29 08:24 | SOAPPROG ---
SOAP Progress Note Assessment/Plan: Assessment: Unspecified Psychosis. R/O Delusional Disorder. Improvement noted, notably improved sleep, improved coping skills (see subjective/objective note). Patient is not safe to discharge at this time as patient continues to exhibit signs of psychosis (withdrawn from social interactions), and express psychosis symptoms (delusions). Patient requires continued inpatient care because of current psychosis, and requires inpatient level of care to stabilize in order to no longer be gravely disabled due to mental illness. Patients support system has inability to manage functional impairment at lower level of care. Patient could benefit from continued inpatient hospitalization for crisis stabilization, safety, and medication evaluation. Plan: 1. Continue current medications. 2. Review with patient informed consent and recommendations for psychotropic medication treatment listed below 3. Labs: no additional labs at this time 4. Therapy: continue milieu and group therapy 5. Further investigation including gathering information from patients relatives and review of past case records to inform treatment plan. 6. Safety/Wellness plan and follow-up outpatient appointments to be established prior to discharge. Next steps are for patient to meet with wound care rn to plan a safe discharge plan and establish outpatient services for ongoing treatment. 7. Confer with inpatient treatment team regarding treatment plan. 8. Psychosocial stressors addressed through director case. 9. Legal status: [facility] 10. Consider discharge this week if patient is in stable condition, safe, and has a safe discharge plan. PSYCHOTROPIC MEDICATION TREATMENT INFORMED CONSENT and RECOMMENDATIONS: Review nature of condition, diagnosis, and prognosis. Review nature and purpose of psychotropic medication treatment. Review type of psychotropic medications being ordered. Review risk and benefits of psychotropic medication treatment. Review probable length of time patient will need to take medications. Review risk and benefits of not undergoing psychotropic medication treatment. Review alternative treatments to psychotropic medications. Review psychotropic medications contraindications, drug-drug interactions, side effects, and importance of reporting any side effects to a psychiatric provider or nurse during inpatient hospitalization, and upon discharge to patients psychiatric outpatient provider, primary care provider, or other health pet care technician. Review importance of asking a nurse, psychiatric provider, or primary care provider any questions or problems concerning the psychotropic medications. Verify patient understands the information that has been provided, and understands, accepts, and agrees to psychotropic medications. Review patients safety plan and importance of patient to report to staff while hospitalized if patient is ever a danger to self/others, or unable to care for self, and upon discharge, the importance for patient to contact [facility] or [facility], or go to the nearest emergency room, if patient is ever a danger to self/others, or unable to care for self. Recommend that upon discharge patient establish medication management treatment with a psychiatric provider, establishes routine therapy appointments, and follow-up with primary care provider. Verify patient understands and agrees to these recommendations. 11/29/18 08:24 Subjective: Following up with patient for evaluation of psychosis and safety. Patient reports, "Feeling better, still having same thoughts, but coping with them." Patient reports no side effects from current medications, and agrees to continue current medications. Patient reports he will let this NETWORK RELAY TESTER or other provider know when he feels safe to discharge. Objective: Vital Signs Temp Pulse Resp BP Pulse Ox 36.7 C 55 L 14 119/59 L 96 11/29/18 06:00 11/29/18 06:00 11/29/18 06:00 11/29/18 06:00 11/29/18 06:00 MD REPORT FROM WEEKEND: Pt placed on STC. Paranoid delusions, worried something would steal his consciousness, take over his body and hurt his fianc e. Agreed to Olanzapine 10 mg po QHS. MSE: The patient is a well-nourished male looking stated chronological age. Attire is appropriate and dress is casual. Grooming status is appropriate. Ambulation is independent. Gait is normal and coordinated. Posture is normal and relaxed. Eye contact is appropriate. Motor activity is appropriate with purposeful, organized, coordinated movements; with no involuntary movements. Attitude is cooperative. Patient appears attentive and relates well to this interviewer. Language production is spontaneous. R/R/V normal. Articulation is clear. Patient reports mood as okay with congruent affect. Patients thought process is linear and logical. Patient denies suicidal thoughts, denies homicidal ideation. Patient denies auditory, visual hallucinations. Patient reports delusions. Patient does not appear to be attending to internal stimuli. Patients attention and concentration are fair. Patient is oriented to person, place, and time. Patients insight and judgment are poor. - Time Spent With Patient Time Spent With Patient: 15 minutes, met with patient individually and with child care associate teacher to review discharge plan and outpatient services. - Pending Discharge Pending Discharge Within 24 Hours: No Pending Discharge Within 48 Hours: No ICD10 Worksheet Patient Problems: Problems Problem Status Onset Cannabis use disorder, mild, abuse Acute Skin rash Acute Substance or medication-induced psychotic disorder Acute Unspecified psychosis Acute
[2018-11-29] MEDS: BETAMETHASONE AUGMENTED 0.05% TP SCH ×2 (09:37→20:43)
--- NOTE | 2018-11-29 15:07 | ASMTCMCOM ---
CM Note CM Note Notes: Pt. reports feeling "okay". Pt. reports sleeping "pretty well", adding he didn't feel as sedated. Pt. stated "dosage seems good" about her medications. Pt. reports getting enough to eat and attending groups. Pt. reports planning on staying in [place], stating "best thing to do". Pt. reports feeling "close" to discharge. Pt. stated he continues to "feel like things I believe are true". Pt. stated "not today" when asked about SI/HI. Pt. denied AVH. Pt. reports paranoia "always". Pt. presents as alert, calm, good eye contact, groomed, slightly guarded, and cooperative. Staff report pt. sleeping 8.5 hours and being medication compliant. Pt. has an appointment with a new therapist on 12/08 @ 4pm and an appointment with a PCP on 12/07 @ 11am. Per provider, pt. should continue with medications and let provider know when pt feels ready to discharge. Date Signed: 11/29/2018 03:05 PM Electronically Signed By:Kimmie Zuñiga.DUANE,MARKETING COMMUNICATIONS ASSOCIATE,NCC
[2018-11-29] MEDS: OLANZapine 10 MG TAB PO SCH (20:37)
--- NOTE | 2018-11-30 09:00 | SOAPPROG ---
SOAP Progress Note Assessment/Plan: Assessment: Unspecified Psychosis. R/O Delusional Disorder. Improvement noted, notably improved sleep, improved coping skills (see subjective/objective note). Patient is not safe to discharge at this time as patient continues to exhibit signs of psychosis (withdrawn from social interactions), and express psychosis symptoms (delusions). Patient requires continued inpatient care because of current psychosis, and requires inpatient level of care to stabilize in order to no longer be gravely disabled due to mental illness. Patients support system has inability to manage functional impairment at lower level of care. Patient could benefit from continued inpatient hospitalization for crisis stabilization, safety, and medication evaluation. Plan: 1. Continue current medications. 2. Review with patient informed consent and recommendations for psychotropic medication treatment listed below 3. Labs: no additional labs at this time 4. Therapy: continue milieu and group therapy 5. Further investigation including gathering information from patients relatives and review of past case records to inform treatment plan. 6. Safety/Wellness plan and follow-up outpatient appointments to be established prior to discharge. Next steps are for patient to meet with care trainer to plan a safe discharge plan and establish outpatient services for ongoing treatment. 7. Confer with inpatient treatment team regarding treatment plan. 8. Psychosocial stressors addressed through case management coordinator. 9. Legal status: [facility] 10. Consider discharge this week if patient is in stable condition, safe, and has a safe discharge plan. PSYCHOTROPIC MEDICATION TREATMENT INFORMED CONSENT and RECOMMENDATIONS: Review nature of condition, diagnosis, and prognosis. Review nature and purpose of psychotropic medication treatment. Review type of psychotropic medications being ordered. Review risk and benefits of psychotropic medication treatment. Review probable length of time patient will need to take medications. Review risk and benefits of not undergoing psychotropic medication treatment. Review alternative treatments to psychotropic medications. Review psychotropic medications contraindications, drug-drug interactions, side effects, and importance of reporting any side effects to a psychiatric provider or nurse during inpatient hospitalization, and upon discharge to patients psychiatric outpatient provider, primary care provider, or other health furnace caretaker. Review importance of asking a nurse, psychiatric provider, or primary care provider any questions or problems concerning the psychotropic medications. Verify patient understands the information that has been provided, and understands, accepts, and agrees to psychotropic medications. Review patients safety plan and importance of patient to report to staff while hospitalized if patient is ever a danger to self/others, or unable to care for self, and upon discharge, the importance for patient to contact [facility] or [facility], or go to the nearest emergency room, if patient is ever a danger to self/others, or unable to care for self. Recommend that upon discharge patient establish medication management treatment with a psychiatric provider, establishes routine therapy appointments, and follow-up with primary care provider. Verify patient understands and agrees to these recommendations. 11/30/18 09:00 Subjective: Following up with patient for evaluation of psychosis and safety. Patient reports, "At this point it changes [id number] whether I feel safe to leave. Still having the same thoughts, but I know I need to start thinking about leaving." Patient reports no side effects from current medications, and agrees to continue current medications. Objective: Vital Signs Temp Pulse Resp BP Pulse Ox 36.8 C 60 14 108/72 96 11/30/18 06:00 11/30/18 06:00 11/30/18 06:00 11/30/18 06:00 11/30/18 06:00 MSE: The patient is a well-nourished male looking stated chronological age. Attire is appropriate and dress is casual. Grooming status is appropriate. Ambulation is independent. Gait is normal and coordinated. Posture is normal and relaxed. Eye contact is appropriate. Motor activity is appropriate with purposeful, organized, coordinated movements; with no involuntary movements. Attitude is cooperative. Patient appears attentive and relates well to this interviewer. Language production is spontaneous. R/R/V normal. Articulation is clear. Patient reports mood as okay with congruent affect. Patients thought process is linear and logical. Patient denies suicidal thoughts, denies homicidal ideation. Patient denies auditory, visual hallucinations. Patient reports delusions. Patient does not appear to be attending to internal stimuli. Patients attention and concentration are fair. Patient is oriented to person, place, and time. Patients insight and judgment are poor. - Time Spent With Patient Time Spent With Patient: 15 minutes, met with patient individually. - Pending Discharge Pending Discharge Within 24 Hours: No Pending Discharge Within 48 Hours: No ICD10 Worksheet Patient Problems: Problems Problem Status Onset Cannabis use disorder, mild, abuse Acute Skin rash Acute Substance or medication-induced psychotic disorder Acute Unspecified psychosis Acute
[2018-11-30] MEDS: BETAMETHASONE AUGMENTED 0.05% TP SCH ×2 (11:00→20:57)
--- NOTE | 2018-11-30 15:18 | ASMTBHDC ---
Notes Note: Notes: Pt. reports feeling "good". Pt. reports he slept "pretty well", adding he was not as sedated. Pt. reports getting enough to eat and attending groups. Pt. denied SI, HI, and AVH. Pt. reports paranoia "always" adding it is related to people being out to get him. Pt. stated he is still figuring out his plan after discharge. Pt. stated he is thinking he would like to discharge Tuesday or Tuesday. Pt. and CC discussed PHP and IOPs. Pt. asked for more information on IOPs. Pt. presents in bed, calm, alert, good eye contact, polite and cooperative. Staff report pt. sleeping 9 hours and being medication compliant. Pt. has an intake therapist appointment on 12/08 @ 4pm and a PCP appointment on 12/07 @ 11am. CC reached out to providers MOC asked about, and left messages to see if providers take pt's insurance ([employer] insurance) Date Signed: 11/30/2018 03:18 PM Electronically Signed By:Kimmie [email or web address].DUANE,TERMINAL MANAGER,NCC
[2018-11-30] MEDS: OLANZapine 10 MG TAB PO SCH (20:12)
[2018-12-01] MEDS: BETAMETHASONE AUGMENTED 0.05% TP SCH ×2 (09:12→20:30)
--- NOTE | 2018-12-01 17:06 | ASMTCMCOM ---
CM Note CM Note Notes: Ct discharging 12/02 at 10:00. Dr Wilson requested that a referral be sent to [facility] out-pt. This will be done. Date Signed: 12/01/2018 05:05 PM Electronically Signed By:Terese Chan. [facility]
--- NOTE | 2018-12-01 18:56 | SOAPPROG ---
SOAP Progress Note Assessment/Plan: Assessment: Plan: 12/01/18 18:56 Psychosis: Improved. CCM. Likely d/c in a.m. if all is well. Subjective: Pt seen, discussed with staff. Reports feeling "a lot better" today. Interviewed patient individually and with mother, fiance, and cousin in family meeting. Discussed his treatment and f/u recommendations. He agrees to continue Zyprexa at home. Family asks for therapy f/u in our outpatient clinic. Has [facility] PCP appt set up already. Family agrees that he is ready to d/ c and plan is made for him to leave tomorrow at 100 if all is well. MSE: Calm, coop. Activity and speech are nl. Affect is restricted, stable. Mood is "pretty good." TP is linear. TC reveals continued paranoid thoughts and IOR's. States, "I don't care what anyone says, I know what I know." Denies SI/HI/. Objective: Vital Signs Temp Pulse Resp BP Pulse Ox 36.5 C 50 L 16 112/60 97 12/01/18 06:00 12/01/18 06:00 12/01/18 06:00 12/01/18 06:00 12/01/18 06:00 - Time Spent With Patient Time Spent With Patient: 35" ICD10 Worksheet Patient Problems: Problems Problem Status Onset Cannabis use disorder, mild, abuse Acute Skin rash Acute Substance or medication-induced psychotic disorder Acute Unspecified psychosis Acute
[2018-12-01] MEDS: OLANZapine 10 MG TAB PO SCH (20:26)
[2018-12-02 06:55] VITALS: BP 106/65
[2018-12-02] MEDS: BETAMETHASONE AUGMENTED 0.05% TP SCH (08:43)
--- NOTE | 2018-12-02 10:30 | SOAPPROG ---
MARIELA Progress Note Assessment/Plan: Assessment: Plan: 12/02/18 10:25 hx briefly reviewed in EDM. Pt seen briefly in milieu with amy who came to pick him up for scheduled d/ c today. Ang reports feeling ready to take pt home, pt states he feels at "90%" of his baseline and ready to d/c home. calm, cooperative, restricted affect. mood "fine", no si/hi. not appearing to be responding to any internal stimuli. pt understands that he will be d/cd with Rx for medication and has f/u appts. d/c order placed. Objective: Vital Signs Temp Pulse Resp BP Pulse Ox 36.4 C 60 15 106/65 96 12/02/18 06:00 12/02/18 06:00 12/02/18 06:00 12/02/18 06:00 12/02/18 06:00 ICD10 Worksheet Patient Problems: Problems Problem Status Onset Cannabis use disorder, mild, abuse Acute Skin rash Acute Substance or medication-induced psychotic disorder Acute Unspecified psychosis Acute
== END 2018-12-02 10:51 | disposition home or self-care (01) | DRG 885 ==
LOC: BBEH 21:37
PROVIDERS: ADMIT Psychiatry & Neurology Behavioral Neurology & Neuropsychiatry; ATTEND Psychiatry & Neurology Behavioral Neurology & Neuropsychiatry
DX: F29 Unspecified psychosis not due to a substance or known physiological condition (principal); F12.90 Cannabis use, unspecified, uncomplicated; E86.0 Dehydration; D75.1 Secondary polycythemia; E83.52 Hypercalcemia; L30.8 Other specified dermatitis; Z96.643 Presence of artificial hip joint, bilateral
CPT/HCPCS: 80305; G0480